=== PATIENT | female | born 1960 | race Caucasian/White ===

== ENCOUNTER 2017-08-12 15:07 | Emergency (ER) | payer MEDICARE ==
--- NOTE | 2017-08-12 15:26 | UC ---
Lower Extremity/Ankle HPI - HPI Summary HPI Summary: injured right foot about 45 minutes prior to arrival pain and burning in 5 th mt and lateral ankle - History of Current Complaint Chief Complaint: UCLowerExtremity Stated Complaint: RIGHT ANKLE.FOOT INJURY Time Seen by Provider: 08/12/17 15:20 Hx Obtained From: Patient ?: No Onset/Duration: Sudden Onset, Still Present Severity Initially: Moderate Severity Currently: Moderate Pain Intensity: 8 Pain Scale Used: 0-10 Numeric Aggravating Factor(s): Standing, Ambulation Alleviating Factor(s): Rest, Elevation Able to Bear Weight: Yes - Allergies/Home Medications Allergies/Adverse Reactions: Allergies Allergy/AdvReac Type Severity Reaction Status Date / Time Bee Venom Allergy Anaphylatic Verified 08/12/17 15:16 Shock Home Medications: Home Medications Citalopram TAB* [Celexa TAB*] 20 mg PO DAILY 08/12/17 [History Confirmed ] Docusate CAP* [Colace Cap*] 1 cap TID 08/12/17 [History Confirmed 08/12/17] Estradiol TAB(NF) 1 mg DAILY 08/12/17 [History Confirmed 08/12/17] Heart Med 1 tab DAILY 08/12/17 [History Confirmed 08/12/17] Ibuprofen TAB* [Motrin TAB* 800 MG] 800 mg PO Q6H 08/12/17 [History Confirmed ] Levothyroxine TAB* [Synthorid 112 MCG TAB*] 112 mcg PO DAILY 08/12/17 [History Confirmed 08/12/17] Tolterodine (NF) [Detrol (NF)] 1 mg PO DAILY 08/12/17 [History Confirmed ] busPIRone TAB* [Buspar TAB*] 30 mg PO DAILY 08/12/17 [History Confirmed 08/12/17 ] PMH/Surg Hx/FS Hx/Imm Hx Previously Healthy: No Endocrine History: Hypothyroidism Psychological History: Anxiety, Depression, Other Other Psychological History: chronic pain - Surgical History Surgical History: Yes Surgery Procedure, Year, and Place: DOUBLE HERNIA REPAIR. HYSTERECTOMY - Family History Known Family History: Positive: None - Social History Occupation: Unemployed Lives: With Family Alcohol Use: None Substance Use Type: None Review of Systems Constitutional: Negative Skin: Negative Eyes: Negative ENT: Negative Respiratory: Negative Cardiovascular: Negative Gastrointestinal: Negative Genitourinary: Negative Motor: Negative Neurovascular: Negative Musculoskeletal: Arthralgia - right ankle and lateral foot Neurological: Negative Psychological: Negative Is Patient Immunocompromised?: No All Other Systems Reviewed And Are Negative: Yes Physical Exam Triage Information Reviewed: Yes Appearance: Well-Appearing, No Pain Distress, Obese Vital Signs Reviewed: Yes Eye Exam: Normal Eyes: Positive: Conjunctiva Clear ENT Exam: Normal ENT: Positive: Normal ENT inspection, Hearing grossly normal, TMs normal. Negative: Nasal congestion, Nasal drainage, Trismus, Muffled/hoarse voice Neck exam: Normal Neck: Positive: Supple, Nontender Respiratory Exam: Normal Respiratory: Positive: Chest non-tender, No respiratory distress, No accessory muscle use Cardiovascular Exam: Normal Cardiovascular: Positive: RRR, Brisk Capillary Refill Musculoskeletal Exam: Normal Musculoskeletal: Positive: Strength Intact, ROM Intact, No Edema Neurological Exam: Normal Neurological: Positive: Alert, Muscle Tone Normal Psychological Exam: Normal Psychological: Positive: Normal Response To Family Skin Exam: Normal Diagnostics - Radiology No standard instances Xray Interpretation: Positive (See Comments) - oblique fracture of 5th MT left foot Radiology Interpretation Completed By: ED Physician, Radiologist Re-Evaluation - Re-Evaluation First Eval Change: Improved - posterior splint applied---n/m/c intact increase comfort with meds and splinting Lower Extremity Course/Dx - Course Course Of Treatment: Non-weight bearing , RICE, pain control, follow with orthopedic MD on Monday - Differential Dx/Diagnosis Differential Diagnosis/HQI/PQRI: Contusion, Dislocation, Fracture (Closed), Fracture (Open), Sprain, Strain Provider Diagnoses: Fractured fith right metatarsal Discharge - Discharge Plan Condition: Stable Disposition: HOME Prescriptions: Hydrocodone-Acetaminophen [Hydrocodone/Acetaminophen 5-325 mg] 1 tab PO Q6H PRN #20 tab MDD 4 PRN Reason: Pain Patient Education Materials: Hydrocodone/Acetaminophen (By mouth), Ibuprofen ( By mouth), Foot Fracture in Adults (ED), RICE Therapy (ED) Referrals: James Álvarez MD [Medical Doctor] - 2 Days
[2017-08-12] MEDS ORDERED: HYDROcodone/ACETAMIN 5-325 MG* 1 TAB PO ONE (15:30)
[2017-08-12 15:34] VITALS: BP 117/71
--- NOTE | 2017-08-12 16:02 | RAD ---
INDICATION: Right foot pain COMPARISON: None TECHNIQUE: AP, lateral, and oblique views were obtained. FINDINGS: There is an oblique mild disc tract fracture of the midportion of the fifth metatarsal. There are no other fractures. There is mild lateral midfoot soft tissue swelling. No additional findings. IMPRESSION: FIFTH METATARSAL FRACTURE.
--- NOTE | 2017-08-12 16:02 | RAD ---
INDICATION: Right ankle pain COMPARISON: Right foot same date TECHNIQUE: AP, lateral, and oblique views were obtained. FINDINGS: There are no acute bony findings. There is a corticated ossific density adjacent to medial malleolus. This could be related to an old injury and could represent a loose body. There are small heel spurs. No additional findings. IMPRESSION: NO ACUTE BONY CHANGES ABOUT THE ANKLE. POSSIBLE REMOTE MEDIAL MALLEOLAR FRACTURE WITH LOOSE BODY. HEEL SPURS.
== END 2017-08-12 17:14 | disposition home or self-care (01) ==
LOC: UCCORT 15:07
DX: S92.351A Displaced fracture of fifth metatarsal bone, right foot, initial encounter for closed fracture (principal); E03.9 Hypothyroidism, unspecified; F41.8 Other specified anxiety disorders; Z91.030 Bee allergy status; X58.XXXA Exposure to other specified factors, initial encounter
CPT/HCPCS: 99203; G0463